=== PATIENT | male | born 1950 | race Two or more races ===

== ENCOUNTER 2017-07-30 08:30 | Outpatient (CLI) | payer OTHER | END 2017-07-30 08:51 | disposition home or self-care (01) | LOC: RAD 501 08:30 | DX: N20.0 Calculus of kidney (principal) ==

== ENCOUNTER 2023-06-20 10:14 | Outpatient (CLI) | payer OTHER | END 2023-06-20 10:17 | disposition home or self-care (01) | LOC: SONOGRAMA 10:14 | PROVIDERS: ATTEND Physical Medicine & Rehabilitation Hospice and Palliative Medicine | DX: M25.512 Pain in left shoulder (principal); M75.32 Calcific tendinitis of left shoulder; M75.102 Unspecified rotator cuff tear or rupture of left shoulder, not specified as traumatic; N40.0 Benign prostatic hyperplasia without lower urinary tract symptoms; N20.0 Calculus of kidney; R97.20 Elevated prostate specific antigen [PSA] ==